=== PATIENT | female | born 1935 | race African-American/Black ===

== ENCOUNTER 2017-03-13 00:42 | Emergency (ER) | payer MEDICARE ==
[~2017-03-13] VITALS: Ht 160 cm; Wt 70.0 kg
[2017-03-13 00:46] VITALS: BP 177/75; PULSE 59; RESP 16; TEMP 97.9; O2SAT 99
[2017-03-13 02:03] VITALS: BP 157/69; PULSE 52; RESP 20; O2SAT 99
[2017-03-13] MEDS ORDERED: CLON0.1T PO (02:11)
[2017-03-13] MEDS ORDERED: METF850T PO (02:11)
[2017-03-13] MEDS ORDERED: METO25TA3 PO (02:11)
[2017-03-13] MEDS ORDERED: AMLO10CA3 PO (02:11)
[2017-03-13] MEDS ORDERED: FLUO20CA12 PO (02:11)
[2017-03-13] MEDS ORDERED: ALPR.25 PO (02:11)
--- NOTE | 2017-03-13 02:24 | PD ---
HPI Chief Complaint: Hypertension Time Seen by Provider: 02:05 Travel History International Travel<30 days: No Contact w/Intl Traveler<30days: No Traveled to known affect area: No History of Present Illness HPI Patient is 81-year-old female with a history of high blood pressure presents emergency department for evaluation of an episode of asymptomatic hypertension. The patient states she started taking garlic first dose was today because ureter was good for her. She states since then she knows her blood pressure been elevated. She denies any chest pain shortness of breath abdominal pain and decreased urination rashes headache focalized weakness. She states currently she feels fine and is reassured because her blood pressure was better when she got here. Taken her blood pressure medication as prescribed and states took clonidine and she is prescribed prior to arrival. [facility] Past Medical History Anxiety: Yes Cardiovascular Problems: Yes (HTN) Diabetes: Yes Patient Takes Glucophage: Yes Hypertension: Yes Tetanus Vaccination: Unknown Influenza Vaccination: Yes Menopausal: Yes : 1 Para: 1 Dilation and Curettage (D&C): Yes Past Surgical History Surgical History: No Previous Surgery Social History Alcohol Use: No Tobacco Use: No Substance Use: No Allergies-Medications (Allergen,Severity, Reaction): Coded Allergies: Penicillins (Verified Allergy, Severe, Anaphylaxis, 03/13/17) Sulfa (Sulfonamide Antibiotics) (Verified Allergy, Severe, Anaphylaxis, ) iodine (Verified Allergy, Severe, Anaphylaxis, 03/13/17) niacin (Verified Adverse Reaction, Intermediate, Nausea/Vomiting, 03/13/17 ) Reported Meds & Prescriptions Reported Meds & Active Scripts Active Reported Clonidine (Clonidine HCl) 0.1 Mg Tab 0.1 Mg PO TID Amlodipine-Benazepril 10-40 Mg Cap 1 Cap PO DAILY Metoprolol Tartrate 25 Mg Tab 25 Mg PO BID Fluoxetine (Fluoxetine HCl) 20 Mg Capsule 20 Mg PO DAILY Xanax (Alprazolam) 0.25 Mg Tab 0.25 Mg PO BID PRN Metformin (Metformin HCl) 850 Mg Tab 850 Mg PO DAILY With a meal Review of Systems Except as stated in HPI: all other systems reviewed are Neg Physical Exam Narrative GENERAL: Well-developed well-nourished in no obvious distress sitting upright in a stretcher reading a novel. SKIN: Focused skin assessment warm/dry. HEAD: Atraumatic. Normocephalic. EYES: Pupils equal and round. No scleral icterus. No injection or drainage. ENT: No nasal bleeding or discharge. Mucous membranes pink and moist. NECK: Trachea midline. No JVD. CARDIOVASCULAR: Regular rate and rhythm. No murmur appreciated. RESPIRATORY: No accessory muscle use. Clear to auscultation. Breath sounds equal bilaterally. GASTROINTESTINAL: Abdomen soft, non-tender, nondistended. Hepatic and splenic margins not palpable. MUSCULOSKELETAL: No obvious deformities. No clubbing. No cyanosis. No edema. NEUROLOGICAL: Awake and alert. No obvious cranial nerve deficits. Motor grossly within normal limits. Normal speech. PSYCHIATRIC: Appropriate mood and affect; insight and judgment normal. Data Data Last Documented VS Vital Signs Date Time Temp Pulse Resp B/P (MAP) Pulse Ox O2 Delivery O2 Flow Rate FiO2 03/13/17 02:36 03/13/17 02:03 52 20 99 03/13/17 00:46 97.9 Room Air Orders Orders Ed Discharge Order (03/13/17 02:25) MDM Medical Decision Making Medical Screen Exam Complete: Yes Emergency Medical Condition: Yes Differential Diagnosis asymptomatic hypertension, hypertensive emergency is been excluded clinically, CHF unlikely, ACS unlikely. Narrative Course Patient roomed in the emergency department, clinically this is asymptomatic hypertension, blood pressure is better now than was at home. She states it was in the 170s to 180s at home. No indication for further lowering of her blood pressure no indication for emergent workup at this time. She stable for discharge. Diagnosis Primary Impression: Elevated blood pressure reading Disposition: DISCHARGE HOME Condition: Stable Santino Earl MD Mar 13, 2017 02:24
== END 2017-03-13 03:08 | disposition home or self-care (01) ==
LOC: EDSEX 00:42 → NEPE 00:42
DX: I10 Essential (primary) hypertension (principal); E11.9 Type 2 diabetes mellitus without complications; Z79.84 Long term (current) use of oral hypoglycemic drugs
CPT/HCPCS: 99282